=== PATIENT | male | born 1945 | race Caucasian/White ===

== ENCOUNTER 2018-08-09 23:46 | Emergency (ER) | payer OTHER, MEDICARE ==
[~2018-08-09] VITALS: Ht 177.8 cm; Wt 95.3 kg
[2018-08-09 23:51] VITALS: BP_SYST 161
[2018-08-10] MEDS ORDERED: cloNIDine HCL 0.1 MG TABLET PO ONE ×2 (00:15→01:00)
[2018-08-10] MEDS ORDERED: hydrALAZINE HCL 20 MG/ML VIAL IM ONE (01:30)
[2018-08-10 02:13] VITALS: BP_SYST 146
== END 2018-08-10 02:13 | disposition home or self-care (01) ==
LOC: SED 23:46
DX: I10 Essential (primary) hypertension (principal); E11.9 Type 2 diabetes mellitus without complications; Z86.79 Personal history of other diseases of the circulatory system; Z88.5 Allergy status to narcotic agent; Z79.899 Other long term (current) drug therapy; Z89.512 Acquired absence of left leg below knee; Z95.1 Presence of aortocoronary bypass graft
CPT/HCPCS: 99283